=== PATIENT | female | born 1955 | race Caucasian/White ===

== ENCOUNTER 2017-02-10 23:30 | Emergency (ER) | payer OTHER ==
[~2017-02-10] VITALS: Ht 167.6 cm; Wt 64.9 kg
[2017-02-10 23:30] VITALS: BP 127/80
[~2017-02-10 23:30] MED LIST: [UNRECOGNIZED DRUG - CODE] IV; [UNRECOGNIZED DRUG - CODE] IV
--- NOTE | 2017-02-10 23:40 | ED.ADGEN ---
Past History Past Medical History: Constipation, Migraines Past Surgical History: No Surgical History Alcohol Use: None Drug Use: None Adult General Chief Complaint Chief Complaint Abdominal pain HPI HPI Patient is a 61 year old female who presents with is abdominal pain. She states it was in the periumbilical area that was crampy in nature and then today went to the epigastrium and radiates her back. She states it's constant in nature nothing makes it better or worse. She denies any vomiting but has felt somewhat nauseated tonight. She was seen by her primary care today who did an x-ray of her abdomen lab work and schedule for an outpatient ultrasound of her gallbladder. She states her mom said bypass surgery in addition to her brother and then they've all had gallbladder issues in addition. She's had her appendix removed about a year ago. She denies any history of smoking. Review of Systems Review of Systems Constitutional: Denies fever or chills [] Eyes: Denies change in visual acuity, redness, or eye pain [] HENT: Denies nasal congestion or sore throat [] Respiratory: Denies cough or shortness of breath [] Cardiovascular: No additional information not addressed in HPI [] GI: Positive for abdominal pain, nausea denies any vomiting or blood in her stools : Denies dysuria or hematuria [] Musculoskeletal: Denies back pain or joint pain [] Integument: Denies rash or skin lesions [] Neurologic: Denies headache, focal weakness or sensory changes [] Endocrine: Denies polyuria or polydipsia [] Current Medications Current Medications Current Medications Medications (Trade) Dose Ordered Sig/[facility] Start Time Stop Time Status Last Admin Dose Admin Info (Do NOT chart on this entry -- for MONITORING) 1 each PRN DAILY PRN 02/11/17 01:15 02/13/17 01:14 Iohexol (Omnipaque 300 Mg/ml) 100 ml 1X ONCE 02/11/17 01:15 02/11/17 01:16 DC 02/11/17 01:48 100 ML Morphine Sulfate (Morphine 2mg Syringe) 2 mg PRN Q15MIN PRN 02/11/17 01:00 02/12/17 00:59 02/11/17 00:57 2 MG Multi-Ingredient Mouthwash/Gargle (Gi Cocktail) 20 ml STK-MED ONCE 02/11/17 02:47 02/11/17 02:48 DC Allergies Allergies Allergies Coded Allergies Type Severity Reaction Last Updated Verified Penicillins Allergy Intermediate Rash 06/13/15 Yes Physical Exam Physical Exam Constitutional: Well developed, well nourished, no acute distress, non-toxic appearance. [] HENT: Normocephalic, atraumatic, bilateral external ears normal, oropharynx moist, no oral exudates, nose normal. [] Eyes: PERRLA, EOMI, conjunctiva normal, no discharge. [] Neck: Normal range of motion, no tenderness, supple, no stridor. [] Cardiovascular:Heart rate regular rhythm, no murmur [] Lungs & Thorax: Bilateral breath sounds clear to auscultation [] Abdomen: Bowel sounds normal, soft, mild tenderness palpation epigastric area, no rebound or guarding, no masses, no pulsatile masses. [] Skin: Warm, dry, no erythema, no rash. [] Back: No tenderness, no CVA tenderness. [] Extremities: No tenderness, no cyanosis, no clubbing, ROM intact, no edema. [] Neurologic: Alert and oriented X 3, normal motor function, normal sensory function, no focal deficits noted. [] Psychologic: Affect normal, judgement normal, mood normal. [] Current Patient Data Vital Signs Vital Signs Date Time Temp Pulse Resp B/P (MAP) Pulse Ox O2 Delivery O2 Flow Rate FiO2 02/11/17 00:57 18 99 Room Air 02/10/17 23:30 97.6 78 Lab Results Laboratory Tests Test 02/10/17 23:55 02/11/17 00:05 Urine Collection Type Unknown Urine Color Yellow Urine Clarity Clear Urine pH 5.5 Urine Specific [place] 1.010 Urine Protein Neg (NEG-TRACE) Urine Glucose (UA) Neg mg/dL (NEG) Urine Ketones (Stick) Trace mg/dL (NEG) Urine Blood Trace (NEG) Urine Nitrite Neg (NEG) Urine Bilirubin Neg (NEG) Urine Urobilinogen Dipstick 0.2 mg/dL (0.2 mg/dL) Urine Leukocyte Esterase Trace (NEG) Urine RBC 0 /HPF (0-2) Urine WBC Occ /HPF (0-4) Urine Squamous Epithelial Cells Occ /LPF Urine Bacteria Few /HPF (0-FEW) White Blood Count 8.0 x10^3/uL (4.0-11.0) Red Blood Count 4.73 x10^6/uL (3.50-5.40) Hemoglobin 13.9 g/dL (12.0-15.5) Hematocrit 41.1 % (36.0-47.0) Mean Corpuscular Volume 87 fL (79-100) Mean Corpuscular Hemoglobin 30 pg (25-35) Mean Corpuscular Hemoglobin Concent 34 g/dL (31-37) Red Cell Distribution Width 14.1 % (11.5-14.5) Platelet Count 313 x10^3/uL (140-400) Neutrophils (%) (Auto) 47 % (31-73) Lymphocytes (%) (Auto) 44 % (24-48) Monocytes (%) (Auto) 8 % (0-9) Eosinophils (%) (Auto) 1 % (0-3) Basophils (%) (Auto) 0 % (0-3) Neutrophils # (Auto) 3.8 x10^3uL (1.8-7.7) Lymphocytes # (Auto) 3.5 x10^3/uL (1.0-4.8) Monocytes # (Auto) 0.6 x10^3/uL (0.0-1.1) Eosinophils # (Auto) 0.1 x10^3/uL (0.0-0.7) Basophils # (Auto) 0.0 x10^3/uL (0.0-0.2) Prothrombin Time 9.9 SEC (9.4-11.4) Prothrombin Time INR 1.0 (0.9-1.1) PTT 26 SEC (23-33) Sodium Level 138 mmol/L (136-145) Potassium Level 3.3 mmol/L (3.5-5.1) L Chloride Level 101 mmol/L (98-107) Carbon Dioxide Level 29 mmol/L (21-32) Anion Gap 8 (6-14) Blood Urea Nitrogen 20 mg/dL (7-20) Creatinine 0.8 mg/dL (0.6-1.0) Estimated GFR (Cockcroft-Gault) 72.7 Glucose Level 84 mg/dL (70-99) Calcium Level 9.1 mg/dL (8.5-10.1) Magnesium Level 2.2 mg/dL (1.8-2.4) Total Bilirubin 0.4 mg/dL (0.2-1.0) Direct Bilirubin 0.1 mg/dL (0.0-0.2) Aspartate Amino Transferase (AST) 24 U/L (15-37) Alanine Aminotransferase (ALT) 33 U/L (14-59) Alkaline Phosphatase 98 U/L (46-116) Creatine Kinase 133 U/L (26-192) Creatine Kinase MB (Mass) 1.7 ng/mL (0.0-3.6) Creatine Kinase MB Relative Index 1.3 % (0-4) Troponin I Quantitative < 0.017 ng/mL (0-0.055) Total Protein 7.4 g/dL (6.4-8.2) Albumin 4.0 g/dL (3.4-5.0) Lipase 149 U/L (73-393) Serum Test, Qualitative Negative (NEG) EKG EKG EKG shows sinus rhythm with a [address] elevations, T-wave flattening noticed in in aVL, normal axis, QTC 421 ms, as interpreted by me. Radiology/Procedures Radiology/[place] [address] IMAGING REPORT Signed PATIENT: DAVE RENNER ACCOUNT: [id number] : 1955 LOCATION: ER AGE: 61 SEX: F EXAM STATUS: REG ER ORD. PHYSICIAN: CADEN BOLIVAR MD REASON: r/o aortic dissection PROCEDURE: CT ANGIO CHEST ABD PELVIS Examination: CT angiogram chest abdomen with IV contrast HISTORY: History of back pain, abdominal pain, aortic dissection COMPARISON: 06/13/2015 TECHNIQUE: Axial CT angiography images of the chest abdomen with IV contrast. Coronal and sagittal reformats were performed. Exposure: One or more of the following individualized dose reduction techniques were utilized for this examination: 1. Automated exposure control 2. Adjustment of the mA and/or kV according to patient size 3. Use of iterative reconstruction technique FINDINGS: The caliber of the aorta grossly appears unremarkable. The evaluation of the ascending aorta limited due to motion artifact. No evidence of pericardial effusion. No evidence of aortic dissection identified. Mild abdominal aortic atherosclerotic changes. The origin of the great vessels from the arch of the aorta appear intact. There is common origin of the right innominate and the left common carotid artery. The celiac artery, superior mesenteric artery, inferior mesenteric artery are patent. The right and left renal arteries are patent. Minimal atelectasis in the bibasilar lungs. Cystic structures identified in the right and left lobes of the liver with the largest measuring 2.0 cm similar to prior exam likely cysts. The visualized spleen, adrenals grossly appears unremarkable. The gallbladder is mildly distended. The stomach is mildly distended. The visualized pancreas is grossly unremarkable. Small bowel is nondilated. Feces and gas noted in the visualized colon. The bilateral kidneys enhance symmetrically. Small subcentimeter cyst identified superior pole of the left kidney. Mild degenerative changes within the visualized thoracolumbar spine. IMPRESSION: 1. No evidence of aortic dissection. 2. Minimal bibasilar lung atelectasis. 3. Liver cysts. 4. Mild degenerative changes thoracolumbar spine. Electronically signed by: Fredrick Felipe MD (02/11/2017 2:21 AM) DICTATED AND SIGNED BY: FREDRICK FELIPE MD DATE: 02/11/17212 CC: CADEN BOLIVAR MD; NON,STAFF ~ Course & Med Decision Making Course & Med Decision Making Pertinent Labs and Imaging studies reviewed. (See chart for details) EKG has flattening of her T waves in aVL, CT angiogram of her chest does not show any acute abnormalities. She does have family history of coronary disease and gallbladder issues. I recommended patient to be admitted to the hospital for chest pain rule out and explained to her that she has a family history and is difficult for him and to have "typical" chest pain. She states she rather do it GI cocktail be discharged home and asked her primary care physician about an outpatient stress test. I will discharge her home however she did get an aspirin and GI cocktail prior to leaving. Return precautions given, she specifically instructed if she has any worsening pain, shortness of breath or other abnormalities return back to ER. Final Impression Final Impression Abdominal/chest pain Problems: Dragon Disclaimer Dragon Disclaimer This electronic medical record was generated, in whole or in part, using a voice recognition dictation system. CADEN BOLIVAR MD Feb 10, 2017 23:40
[2017-02-11 00:24] LABS: BASO % 0 % (0-3); EOS # 0.1 x10^3/uL (0.0-0.7); EOS % 1 % (0-3); HEMATOCRIT 41.1 % (36.0-47.0); HEMOGLOBIN 13.9 g/dL (12.0-15.5); LYMPH # 3.5 x10^3/uL (1.0-4.8); LYMPH % 44 % (24-48); MEAN CORPUSCULAR HEMOGLOBIN 30 pg (25-35); MEAN CORPUSCULAR HGB CONC 34 g/dL (31-37); MEAN CORPUSCULAR VOLUME 87 fL (79-100); MONO # 0.6 x10^3/uL (0.0-1.1); MONO % 8 % (0-9); NEUT # 3.8 x10^3uL (1.8-7.7); NEUT % 47 % (31-73); PLATELET COUNT 313 x10^3/uL (140-400); RED BLOOD COUNT 4.73 x10^6/uL (3.50-5.40); RED CELL DISTRIBUTION WIDTH 14.1 % (11.5-14.5)
[2017-02-11 00:33] LABS: PREG TEST PT QUAL NEGATIVE (NEG)
[2017-02-11 00:33] LABS: BILIRUBIN,URINE NEG (NEG); CLARITY,URINE CLEAR; COLOR,URINE YELLOW; GLUCOSE,URINE NEG (NEG); NITRITE,URINE NEG (NEG); UROBILINOGEN,URINE 0.2 mg/dL (0.2 mg/dL)
[2017-02-11 00:34] LABS: BACTERIA,URINE FEW /HPF (0-FEW); RBC,URINE 0 /HPF (0-2); SQUAMOUS EPITHELIAL CELL,UR OCC /LPF; WBC,URINE OCC /HPF (0-4)
[2017-02-11 00:40] LABS: CALCIUM 9.1 mg/dL (8.5-10.1); CREATININE 0.8 mg/dL (0.6-1.0); DIRECT BILIRUBIN 0.1 mg/dL (0.0-0.2); GFR 72.7; MAGNESIUM 2.2 mg/dL (1.8-2.4); POTASSIUM 3.3 mmol/L (3.5-5.1); TOTAL BILIRUBIN 0.4 mg/dL (0.2-1.0); TOTAL PROTEIN 7.4 g/dL (6.4-8.2)
[2017-02-11] MEDS ORDERED: MORPHINE SULFATE 2 MG/ML DISP.SYRIN. IV/SQ PRN (01:00)
[2017-02-11] MEDS ORDERED: CONTRAST GIVEN MC PRN (01:15)
[2017-02-11] MEDS ORDERED: IOHEXOL 300 MG/ML 50 ML VIAL. IV ONE ×2 (01:15)
--- NOTE | 2017-02-11 02:25 | RAD ---
Examination: CT angiogram chest abdomen with IV contrast HISTORY: History of back pain, abdominal pain, aortic dissection COMPARISON: 06/13/2015 TECHNIQUE: Axial CT angiography images of the chest abdomen with IV contrast. Coronal and sagittal reformats were performed. Exposure: One or more of the following individualized dose reduction techniques were utilized for this examination: 1. Automated exposure control 2. Adjustment of the mA and/or kV according to patient size 3. Use of iterative reconstruction technique FINDINGS: The caliber of the aorta grossly appears unremarkable. The evaluation of the ascending aorta limited due to motion artifact. No evidence of pericardial effusion. No evidence of aortic dissection identified. Mild abdominal aortic atherosclerotic changes. The origin of the great vessels from the arch of the aorta appear intact. There is common origin of the right innominate and the left common carotid artery. The celiac artery, superior mesenteric artery, inferior mesenteric artery are patent. The right and left renal arteries are patent. Minimal atelectasis in the bibasilar lungs. Cystic structures identified in the right and left lobes of the liver with the largest measuring 2.0 cm similar to prior exam likely cysts. The visualized spleen, adrenals grossly appears unremarkable. The gallbladder is mildly distended. The stomach is mildly distended. The visualized pancreas is grossly unremarkable. Small bowel is nondilated. Feces and gas noted in the visualized colon. The bilateral kidneys enhance symmetrically. Small subcentimeter cyst identified superior pole of the left kidney. Mild degenerative changes within the visualized thoracolumbar spine. IMPRESSION: 1. No evidence of aortic dissection. 2. Minimal bibasilar lung atelectasis. 3. Liver cysts. 4. Mild degenerative changes thoracolumbar spine. Electronically signed by: Fredrick Vazquez MD (02/11/2017 2:21 AM)
[2017-02-11] MEDS ORDERED: LIDO:MAALOX 1:1 20 ML SINGLE DOSE ONE (02:47)
[2017-02-11] MEDS ORDERED: ASPIRIN 325 MG TABLET PO ONE (03:00)
[2017-02-11] MEDS ORDERED: LIDO:MAALOX 1:1 20 ML SINGLE DOSE PO ONE (03:00)
--- NOTE | 2017-02-11 04:29 | EKG ---
[address] [address] Test Date: 2017-02-11 Test Time: 00:23:01 Pat Name: DAVE RENNER Department: Room: Gender: F Microbiology Director: : 1955 Requested By: CADEN BOLIVAR Order Number: [id number] Reading MD: Jaylan Smith Measurements Intervals [place] Rate: 67 P: 41 [place]: 156 QRS: 72 QRSD: 94 T: 48 QT: 396 QTc: 421 Interpretive Statements SINUS RHYTHM Electronically Signed On 02-11-2017 11:16:20 CDT by Jaylan Smith
--- NOTE | 2017-02-11 07:22 | RAD ---
Portable chest, 02/11/2017: History: Chest and abdominal pain Comparison is made to a study from 06/13/2015. The heart size and pulmonary vascularity are normal. The lungs are clear. There is no evidence of pleural fluid. There are mild scattered degenerative changes in the spine. IMPRESSION: No acute cardiopulmonary abnormality is detected.
== END 2017-02-11 03:08 | disposition home or self-care (01) ==
LOC: ER 23:30
DX: R07.89 Other chest pain (principal); R10.33 Periumbilical pain; R10.13 Epigastric pain; G43.909 Migraine, unspecified, not intractable, without status migrainosus; R11.0 Nausea; Z88.0 Allergy status to penicillin
CPT/HCPCS: 36415; 71010; 71275; 74174; 80048; 80076; 81001; 82553; 83690; 83735; 84443; 84484; 84703; 85027; 85610; 85730; 87086; 93005; 96374; 99285; J2270; Q9967

== ENCOUNTER 2018-03-17 17:35 | Emergency (ER) | payer OTHER ==
[~2018-03-17] VITALS: Ht 167.6 cm; Wt 62.6 kg
[2018-03-17 18:15] VITALS: BP 109/64
--- NOTE | 2018-03-17 18:23 | PHYS DOC ---
Past History Past Medical History: Constipation, Migraines Past Surgical History: Appendectomy Alcohol Use: None Drug Use: None Adult General Chief Complaint Chief Complaint: LACERATION/AVULSION HPI HPI Patient is a 62-year-old female who is presenting with laceration to the left thumb occurred while she was trying to cut something. It was bleeding a lot so she came to the emergency room her tetanus status is up-to-date no numbness. She is able to move which is fine Allergies Allergies Allergies Coded Allergies Type Severity Reaction Last Updated Verified Penicillins Allergy Intermediate Rash 06/13/15 Yes Physical Exam Physical Exam Constitutional: Well developed, well nourished, no acute distress, non-toxic appearance. [] HENT: Normocephalic, atraumatic, bilateral external ears normal, oropharynx moist, no oral exudates, nose normal. [] Eyes: PERRLA, EOMI, conjunctiva normal, no discharge. [] Normal respiratory effort no increased work of breathing Skin: Warm, dry, no erythema, no rash. [] Back: No tenderness, no CVA tenderness. [] Extremities: Patient is a very superficial through the dermis only 0.5 cm laceration on the dorsum of the left thumb mild oozing is noted. Controlled with pressure Neurologic: Alert and oriented X 3, normal motor function, normal sensory function, no focal deficits noted. [] Psychologic: Affect normal, judgement normal, mood normal. [] EKG EKG [] Radiology/Procedures Radiology/Procedures [] Course & Med Decision Making Course & Med Decision Making Pertinent Labs and Imaging studies reviewed. (See chart for details) []Laceration repair: Verbal consent was obtained the wound was irrigated no foreign body was identified it was closed with excellent skin approximation with Dermabond. Patient tolerated well dressing was applied wound care precautions were given the tetanus status is up-to-date. Dragon Disclaimer Dragon Disclaimer This electronic medical record was generated, in whole or in part, using a voice recognition dictation system. Departure Departure: Impression: Primary Impression: Laceration Disposition: HOME, SELF-CARE Condition: STABLE Patient Instructions: Laceration Care, Adult DASHA KELLY MD Mar 17, 2018 18:23
== END 2018-03-17 18:22 | disposition home or self-care (01) ==
LOC: ER 17:35
DX: S61.012A Laceration without foreign body of left thumb without damage to nail, initial encounter (principal); G43.909 Migraine, unspecified, not intractable, without status migrainosus; Z88.0 Allergy status to penicillin; W45.8XXA Other foreign body or object entering through skin, initial encounter; Y93.89 Activity, other specified; Y99.8 Other external cause status; Y92.89 Other specified places as the place of occurrence of the external cause
CPT/HCPCS: 12001; 99283